=== PATIENT | male | born 1970 | race Caucasian/White ===

== ENCOUNTER 2016-12-26 12:57 | Emergency (ER) | payer BC, OTHER ==
[2016-12-26] MEDS ORDERED: Ibuprofen 800 MG Tab PO ONE (12:58)
[2016-12-26] MEDS ORDERED: traMADol 50 MG Tab PO ONE (12:58)
[2016-12-26] MEDS ORDERED: Cephalexin 500 MG Cap PO ONE (12:58)
[2016-12-26 13:11] VITALS: BP 146/102
--- NOTE | 2016-12-26 13:29 | EDM.PDOC ---
ED HPI GENERAL MEDICAL PROBLEM - General Chief Complaint: Lower Extremity Injury/Pain Stated Complaint: [id number] WORKERS COMP 12/24/16 LEFT KNEE Time Seen by Provider: 12/26/16 13:20 Source of Information: Reports: Patient History Limitations: Reports: No Limitations - History of Present Illness INITIAL COMMENTS - FREE TEXT/NARRATIVE: 46 yo white male c/o increasing Left Knee pain and swelling since injured at work ( 3 days ago). Pt. seen @ [facility] 3 days ago w/ no imaging done. Pt. given Ibuprofen w/o relief. Onset Date: 12/24/16 Onset Time: 10:00 Duration: Day(s): Location: Reports: Lower Extremity, Left Quality: Reports: Ache Severity: Moderate Improves with: Reports: Rest Worsens with: Reports: Movement Context: Reports: Activity Associated Symptoms: Reports: No Other Symptoms Left Knee Pain Score (Numeric/FACES): 6 - Related Data Allergies Allergy/AdvReac Type Severity Reaction Status Date / Time No Known Allergies Allergy Verified 12/26/16 13:11 Home Meds: Home Meds Ibuprofen 400 mg PO ASDIRECTED PRN 12/26/16 [History] Past Medical History HEENT History: Reports: Hard of Hearing Cardiovascular History: Reports: None Respiratory History: Reports: None Gastrointestinal History: Reports: None Genitourinary History: Reports: None Musculoskeletal History: Reports: None Neurological History: Reports: None Psychiatric History: Reports: None Endocrine/Metabolic History: Reports: None Hematologic History: Reports: None Immunologic History: Reports: None Oncologic (Cancer) History: Reports: None Dermatologic History: Reports: None - Infectious Disease History Infectious Disease History: Reports: Chicken Pox - Past Surgical History Head Surgeries/Procedures: Reports: None HEENT Surgical History: Reports: Tonsillectomy Social & Family History - Tobacco Use Smoking Status *Q: Current Every Day Smoker Years of Tobacco use: 10 Packs/Tins Daily: 1 Second Hand Smoke Exposure: No - Caffeine Use Caffeine Use: Reports: Coffee, Soda - Recreational Drug Use Recreational Drug Use: No Review of Systems - Review of Systems Review Of Systems: See Below Constitutional: Reports: No Symptoms Eyes: Reports: No Symptoms Ears: Reports: No Symptoms Nose: Reports: No Symptoms Mouth/Throat: Reports: No Symptoms Respiratory: Reports: No Symptoms Cardiovascular: Reports: No Symptoms GI/Abdominal: Reports: No Symptoms Musculoskeletal: Reports: Joint Pain (left knee), Joint Swelling (left knee) Skin: Reports: No Symptoms Neurological: Reports: No Symptoms Psychiatric: Reports: No Symptoms ED EXAM, GENERAL - Physical Exam Exam: See Below Exam Limited By: No Limitations General Appearance: Alert, WD/WN, No Apparent Distress Eye Exam: Bilateral Eye: EOMI Ears: Normal External Exam Ear Exam: Bilateral Ear: TM normal Nose: Normal Inspection Throat/Mouth: Normal Inspection Head: Atraumatic Neck: Normal Inspection Respiratory/Chest: No Respiratory Distress Cardiovascular: Normal Peripheral Pulses Peripheral Pulses: 2+: Femoral (L), Femoral (R) Back Exam: Normal Inspection Extremities: Joint Swelling (left knee), Limited Range of Motion Neurological: Alert, Oriented, CN II-XII Intact Psychiatric: Normal Affect, Normal Mood Skin Exam: Warm, Dry, Intact Lymphatic: No Adenopathy ED TRAUMA EXTREMITY PROCEDURES - Additional/Other Procedure(s) Other (Free Text) Procedure(s): Left knee aspirated of 47cc blood laterally w/o problems. Pt. tolerated well Course - Vital Signs Text/Narrative:: Case discussed with Dr. AGRAWAL Orthopedics @ [facility] in [place]. - He advised to aspirate joint and infuse 10cc of 1% Lidocaine. Will see pt. on F/U Wednesday in office Last Recorded V/S: Last Vital Signs Temp 36.4 C 12/26/16 13:05 Pulse 106 H 12/26/16 13:05 Resp 16 12/26/16 13:05 BP 146/102 H 12/26/16 13:05 Pulse Ox 98 12/26/16 13:05 - Orders/Labs/Meds Meds: Medications Discontinued Medications Generic Name Dose Route Start Last Admin Trade Name Tr PRN Reason Stop Dose Admin Lidocaine HCl 30 ml 12/26/16 16:23 12/26/16 16:32 Xylocaine-Mpf 1% INJECT 12/26/16 16:24 30 ml ONETIME ONE Administration Departure - Departure Time of Disposition: 17:13 Disposition: Home, Self-Care 01 Condition: Good Clinical Impression: Dislocation of patella, left, closed Qualifiers: Encounter type: initial encounter Qualified Code(s): S83.005A - Unspecified dislocation of left patella, initial encounter Hemarthrosis of knee joint Qualifiers: Laterality: left Qualified Code(s): M25.062 - Hemarthrosis, left knee - Discharge Information Forms: ED Department Discharge Additional Instructions: Rest Elevate and Apply Ice Pack TID X 15mins. For Pain: 1) Ibuprofen 800mg TID w/ Food # 30 2) Tramadol 50mg TID PRN # 30 3) Keflex 500mg BID #20 Wear Knee support F/U Wednesday w/ Orthopedics Dr. Alex Agrawal between 8AM-11AM [address] [place] [address]
[2016-12-26] MEDS ORDERED: Lidocaine 1% 30 ML SDV INJECT ONE (16:23)
[2016-12-26] MEDS ORDERED: traMADol 50 MG Tab ONE (17:30)
[2016-12-26] MEDS ORDERED: Ibuprofen 800 MG Tab ONE (17:31)
[2016-12-26] MEDS ORDERED: Cephalexin 500 MG Cap ONE (17:31)
== END 2016-12-26 17:45 | disposition home or self-care (01) ==
LOC: DL.ED 12:57
DX: S83.015A Lateral dislocation of left patella, initial encounter (principal); M25.062 Hemarthrosis, left knee; Y99.0 Civilian activity done for income or pay; F17.210 Nicotine dependence, cigarettes, uncomplicated; Z98.890 Other specified postprocedural states
CPT/HCPCS: 20610; 73700; 99284; A9270